=== PATIENT | male | born 1960 | race Caucasian/White ===

== ENCOUNTER → 2017-01-30 08:26 | Outpatient (CLI) | payer BC ==
[~2017-01-30] VITALS: Ht 172.7 cm; Wt 99.3 kg
[~2017-01-30 08:26] MED LIST: LISINOPRIL2.5 MG PO; NEXIUM40 MG PO
[2017-01-30 09:59] VITALS: Ht 172.7 cm; Wt 99.3 kg
== END ==
LOC: D.FANS 08:26
DX: E11.9 Type 2 diabetes mellitus without complications (principal)

== ENCOUNTER 2017-03-15 05:19 | Day surgery (SDC) | payer BC ==
[2017-03-15 06:20] LABS: HEMATOCRIT 44.1 % (42.0-54.0); HEMOGLOBIN 14.5 g/dL (13.5-17.5); MCH 27.4 pg (26.0-34.0); MCHC 32.9 g/dL (31.0-37.0); MCV 83.4 fL (80.0-100.0); MEAN PLATELET VOLUME 10.4 fL (7.4-10.4); RBC 5.29 10x6/uL (4.20-6.10); RDW 12.9 % (11.5-14.5); WBC 7.9 10x3/uL (4.8-10.8)
[2017-03-15 06:45] LABS: CALC OSMOLALITY 279 mosm/kg (275-300); CALCIUM 9.1 mg/dL (8.5-10.1); CARBON DIOXIDE 25.2 mmol/L (21.0-32.0); CHLORIDE - SERUM 105 mmol/L (98-107); CREATININE - SERUM 0.9 mg/dL (0.6-1.3); GLUCOSE 89 mg/dL (74-106); POTASSIUM - SERUM 3.8 mmol/L (3.5-5.1); SODIUM 141 mmol/L (136-145); UREA NITROGEN 12 mg/dL (7-18); eGFR NON AFRICAN AMERICAN > 90 mL/min (90-120)
[2017-03-15] MEDS ORDERED: GLUCOPHAGE500 MG PO (06:46)
[2017-03-15 06:53] VITALS: BP 123/84; BMI 32.7
--- NOTE | 2017-03-19 09:40 | OP ---
PATIENT NAME: KARLA DOLAN MEDICAL RECORD: [id number] :64 LOCATION:D.OPS ADMISSION DATE: SURGEON: RAMON ALONZO MD DATE OF OPERATION: 03/15/2017 PREOPERATIVE DIAGNOSES: 1. Gastroesophageal reflux. 2. History of Gutierrez esophagus. 3. Desires screening colonoscopy. POSTOPERATIVE DIAGNOSES: 1. Gastroesophageal reflux. 2. History of Gutierrez's esophagus. 3. Desires screening colonoscopy. 4. Mild prepyloric gastritis. 5. Large hiatal hernia. 6. Probable regression in the patient's Gutierrez esophagus. 7. No colonic polyps or masses. 8. One anal papilla. PROCEDURES: 1. Esophagogastroduodenoscopy with antral and distal esophageal biopsies. 2. Total colonoscopy to cecum. SURGEON: Ramon Alonzo MD SAWSMITH: None. BLOOD LOSS: Minimal. ANESTHESIA: IV sedation. COMPLICATIONS: None. The risks, possible complications, and alternatives to the procedure were explained to the patient. He elects to proceed. ENDOSCOPIC COURSE: The patient was conveyed to the endoscopy suite electively on 03/15/2017. IV sedation was induced by the anesthesia staff. A bite block was inserted. A gastroscope was inserted into the mouth. It was advanced easily into the hypopharynx. The esophagus was easily intubated as were the stomach and duodenum. Upon withdrawal, retroflexed and angulus views were obtained. Antral biopsies were obtained. Distal esophageal biopsies were obtained. The endoscope was then withdrawn under direct vision. The patient was turned 180 degrees and placed in the Avila position. A digital rectal examination was performed. A colonoscope was inserted through the anus. It was easily advanced to the cecum. The prep was very good. I slowly withdrew the endoscope. I irrigated and aspirated extensively. The pullback was greater than a 16-minute pullback. I dragged the folds. I noted no colonic polyps or masses. A retroflexed view was obtained in the rectum. I then un-retroflexed the scope and removed it under direct vision. PLAN: Our plan for the patient's next surveillance upper endoscopy with biopsies to take place in 2 years. Unless he develops new symptoms such as OPERATIVE REPORT [id number] KARLA DOLAN abdominal pain or rectal bleeding, we can wait another 10 years for his next colonoscopy. TRANSINT:[id number] Voice Confirmation ID: [id number] DOCUMENT ID: [id number] RAMON ALONZO MD at 0940 CC: ENMA ADAMS DO [id number] DICTATION DATE: 03/15/17921 DESTINATION COORDINATOR: 03/15/17 1018 [facility] 03/15/17 [facility] [address] [place] [address]
--- NOTE | 2017-03-19 09:40 | HP ---
PATIENT: KARLA DOLAN MEDICAL RECORD: [id number] ACCOUNT: [id number] [facility] 64 AD[facility]ION DATE: 03/15/17 HISTORY AND PHYSICAL EXAMINATION CHIEF COMPLAINT: Here for endoscopy. HISTORY OF PRESENT ILLNESS: The patient is to undergo surveillance upper endoscopy due to history of Gutierrez's. His reflux is controlled on Nexium [address] Casiano is his primary care doctor. He is having no dysphagia. No rectal bleeding. No abdominal pain. He also desires screening colonoscopy. The risks, possible complications, and alternatives to the procedure were explained to the patient. He elects to proceed. PAST MEDICAL AND SURGICAL HISTORY: Obstructive sleep apnea, on CPAP; hypertension; history of knee surgery; history of noninsulin-dependent diabetes mellitus; gastroesophageal reflux; and Gutierrez esophagus. ALLERGIES: No known drug allergies. HOME MEDICINES: Metformin as well as Nexium. REVIEW OF SYSTEMS: Negative for CVA or seizures. Negative for renal disease or hepatitis. Review of systems is negative other than as is described above. PHYSICAL EXAMINATION: GENERAL: The patient does not appear acutely ill. He does not appear chronically ill. VITAL SIGNS: Reviewed. EARS: External ears appear normal. EYES: Disconjugate gaze. NECK: Trachea is midline. CHEST: No intercostal retractions. PULMONARY: Nonlabored, no stridor. ABDOMEN: Nontender. IMPRESSION: 1. History of Gutierrez esophagus, in need of surveillance upper endoscopy. 2. Gastroesophageal reflux. 3. Desires screening colonoscopy. PLAN: 1. EGD with biopsies. 2. Total colonoscopy. TRANSINT:[id number] Voice Confirmation ID: [id number] DOCUMENT ID: [id number] HISTORY AND PHYSICAL [id number] MAGDALENOKARLA CHI ALONZO, ANGELICA SIU at 0940 CC: ENMA CASIANO DO [id number] DICTATION DATE: 03/15/1724 ASSOCIATE MERCHANDISER: 03/15/17 0858 [facility] 03/15/17 [address] [place] [address]
== END 2017-03-15 10:20 | disposition home or self-care (01) ==
LOC: D.OPS 05:19
PROVIDERS: Anesthesiology
DX: Z12.11 Encounter for screening for malignant neoplasm of colon (principal); K21.9 Gastro-esophageal reflux disease without esophagitis; K29.60 Other gastritis without bleeding; K44.9 Diaphragmatic hernia without obstruction or gangrene; D12.9 Benign neoplasm of anus and anal canal; G47.33 Obstructive sleep apnea (adult) (pediatric); I10 Essential (primary) hypertension; E11.9 Type 2 diabetes mellitus without complications; Z79.84 Long term (current) use of oral hypoglycemic drugs; Z79.899 Other long term (current) drug therapy; Z01.812 Encounter for preprocedural laboratory examination

== ENCOUNTER 2019-04-07 07:17 | Day surgery (SDC) | payer BC ==
[~2019-04-07] VITALS: Ht 172.7 cm; Wt 95.5 kg
[~2019-04-07 07:17] MED LIST changes: +GLUCOPHAGE500 MG PO
[2019-04-07 08:28] LABS: HEMATOCRIT 40.9 % (42.0-54.0); HEMOGLOBIN 13.1 g/dL (13.5-17.5); MCH 25.4 pg (26.0-34.0); MCV 79.4 fL (80.0-100.0); MEAN PLATELET VOLUME 9.8 fL (7.4-10.4); RBC 5.15 10x6/uL (4.20-6.10); RDW 13.9 % (11.5-14.5); WBC 7.3 10x3/uL (4.8-10.8)
[2019-04-07 08:29] LABS: CALC OSMOLALITY 279 mosm/kg (275-300); CALCIUM 8.8 mg/dL (8.5-10.1); CARBON DIOXIDE 29.7 mmol/L (21.0-32.0); CHLORIDE - SERUM 103 mmol/L (98-107); CREATININE - SERUM 0.7 mg/dL (0.6-1.3); GLUCOSE 95 mg/dL (74-106); POTASSIUM - SERUM 4.2 mmol/L (3.5-5.1); SODIUM 140 mmol/L (136-145); UREA NITROGEN 16 mg/dL (7-18); eGFR NON AFRICAN AMERICAN > 90 mL/min (90-120)
[2019-04-07] MEDS ORDERED: LISINOPRIL10 MG PO (08:52)
[2019-04-07 08:56] VITALS: BP 139/91; Ht 172.7 cm; Wt 95.5 kg
--- NOTE | 2019-04-07 10:38 | NUR ---
PT DC INSTRUCTIONS REVIEWED AT THIS TIME, PT VERBALIZES UNDERSTANDING. PT IV REMOVED AT THIS TIME, INTACT, NO REDNESS OR SWELLING NOTED AT SITE.
--- NOTE | 2019-04-07 10:44 | NUR ---
PT LEAVING OPS AT THIS TIME VIA WC, NAD NOTED.
--- NOTE | 2019-04-07 12:54 | HP ---
PATIENT: KARLA DOLAN MEDICAL RECORD: [id number] ACCOUNT: [id number] LOCATION:[facility] : 64 ADMISSION DATE: 04/07/19 PCP: ENMA ADAMS DO HISTORY AND PHYSICAL EXAMINATION CHIEF COMPLAINT: Gutierrez's esophagus. HISTORY OF PRESENT ILLNESS: The patient is here for surveillance upper endoscopy due to history of Gutierrez's esophagus. It has been about 2 years since his last upper endoscopy. He has had no dysphagia. No epigastric abdominal pain. His reflux is well controlled on Nexium. He is not a volume refluxer. The patient has obstructive sleep apnea and is on a CPAP. PAST MEDICAL AND SURGICAL HISTORY: Gastroesophageal reflux and hypertension. SOCIAL HISTORY: Nonsmoker. ALLERGIES: No known drug allergies. HOME MEDICINES: Lisinopril and Nexium. REVIEW OF SYSTEMS: Negative for CVA or seizures. Negative for diabetes or thyroid problems. PHYSICAL EXAMINATION: GENERAL: The patient does not appear acutely ill. He does not appear chronically ill. VITAL SIGNS: Reviewed. EARS: External ears appear normal. EYES: Disconjugate gaze. PULMONARY: Nonlabored. ABDOMEN: Nontender. IMPRESSION: History of Gutierrez's esophagus, in need of surveillance upper endoscopy. PLAN: EGD with biopsies. TRANSINT:[id number] Voice Confirmation ID: [id number] DOCUMENT ID: [id number] ANGELICA ALONZO MD at 1254 CC: ENMA ADAMS DO [id number] DICTATION DATE: 04/07/1918 TRAINING INTERN: 04/07/19 0939 [facility] 04/07/19 [address] [place] [address]
--- NOTE | 2019-04-07 12:54 | OP ---
PATIENT NAME: KARLA DOLAN MEDICAL RECORD: [id number] :64 LOCATION:D.OPS ADMISSION DATE: SURGEON: RAMON ALONZO MD DATE OF OPERATION: 04/07/2019 PREOPERATIVE DIAGNOSIS: Gutierrez's esophagus in need of Guiterrez's surveillance. POSTOPERATIVE DIAGNOSES: 1. Gutierrez esophagus in need of Gutierrez's surveillance. 2. Multiple gastric polyps. PROCEDURES: 1. Esophagogastroduodenoscopy with antral and distal esophageal biopsies. 2. Gastric hot biopsy forceps polypectomy times 1. 3. Ablation of 22 gastric polyps utilizing the argon plasma ultimate hoops scoreboard operator. SURGEON: Ramon Alonzo MD RETENTION MANAGER: None. BLOOD LOSS: Minimal. ANESTHESIA: IV sedation. COMPLICATIONS: None. The risks, possible complications and alternatives to the procedure were explained to the patient. A consent form was signed. ENDOSCOPIC COURSE: The patient was conveyed to endoscopy suite electively on 04/07/2019. IV sedation was induced by the anesthesia staff. A bite block was inserted. A gastroscope was inserted into the mouth. It was advanced easily into the hypopharynx. The esophagus was easily intubated as were the stomach and duodenum. Upon withdrawal, retroflexed and angulus views were obtained. Antral biopsies were obtained. I found the largest gastric polyp and I removed this in its entirety utilizing the hot biopsy forceps polypectomy technique. This was a 1.4 cm polyp. There were a number of other sessile polyps, all ranging in diameter from 3-mm to 9-mm. I felt that these were small enough where they did not require a biopsy. However, I did want to ablate them as they will enlarge with time. Utilizing the argon plasma ultimate hoops scoreboard operator with the esophageal setting in the forced mode, I ablated all of these polyps in their entireties. I then unretroflexed the scope. I withdrew into the distal esophagus. Four quadrant biopsies were obtained at the EG junction as a surveillance for Gutierrez's esophagus. The endoscope was then withdrawn under direct vision. I will see the patient in my office in 2-3 weeks. It appears that he has had some regression of the Gutierrez's and we will likely extend the time for Gutierrez's surveillance to 3 years rather than 2 years. TRANSINT:[id number] Voice Confirmation ID: [id number] DOCUMENT ID: [id number] OPERATIVE REPORT [id number] KARLA DOLAN RAMON ALONZO MD at 1254 CC: ENMA ADAMS DO [id number] DICTATION DATE: 04/07/19 1003 [facility] DEVELOPER: 04/07/19 1207 [facility] 04/07/19 [id number] [place] [address]
== END 2019-04-07 10:44 | disposition home or self-care (01) ==
LOC: D.OPS 07:17
PROVIDERS: ATTEND Surgery
DX: K22.70 Barrett's esophagus without dysplasia (principal); K21.9 Gastro-esophageal reflux disease without esophagitis; I10 Essential (primary) hypertension; K31.7 Polyp of stomach and duodenum